=== PATIENT | female | born 1990 | race Caucasian/White ===

== ENCOUNTER 2022-07-04 07:16 | Inpatient (IN) | payer BC, OTHER ==
[2022-07-04] VITALS (34 sets, daily range): BP systolic 110–184; BP diastolic 59–100; PULSE 74–111; TEMP 97.6–99.2
[~2022-07-04] VITALS: Ht 170.2 cm; Wt 87.7 kg
[2022-07-04] MEDS ORDERED: ZOFRAN8 MG PO (08:59)
[2022-07-04 09:44] LABS: BASO % 0.4 % (0.0-2.0); EOS # 0.1 K/mm3 (0.0-0.7); EOS % 0.6 % (0.0-4.0); GRAN # 5.9 K/mm3 (1.4-6.5); GRAN % 73.8 % (42.2-75.2); HEMOGLOBIN 12.1 g/dl (12.5-16.0); LYMPH # 1.4 K/mm3 (1.2-3.4); LYMPH % 17.3 % (20.0-51.0); MEAN CELL VOLUME 84 fl (80.0-100.0); MEAN CORPUSCULAR HEMOGLOBIN 29 pg (27-31); MEAN CORPUSCULAR HGB CONC 34 g/dl (33.0-37.0); MEAN PLATELET VOLUME 11.6 fl (7.4-10.4); MONO # 0.6 K/mm3 (0.1-0.6); MONO % 7.3 % (1.7-9.3); PLATELET COUNT 170 K/mm3 (130-400); RED BLOOD COUNT 4.23 M/mm3 (4.10-5.30); REDCELL DISTRIBUTION WIDTH-CV 13.2 % (11.5-14.5)
[2022-07-04 09:45] LABS: HEMATOCRIT 35.7 % (37.0-47.0)
--- NOTE | 2022-07-04 20:15 | NUR ---
2015 IV TO INT. EPID CATH DCD. UP TO BR WITH ASSIST. AMB WELL. VOIDED 200CC. PERICARE DONE. AMB TO 208 AND JORGE WELL.
[2022-07-05 03:00] VITALS: BP 120/78; PULSE 86; TEMP 98.4
[2022-07-05 07:28] VITALS: BP 123/72; PULSE 88; TEMP 97.2
[2022-07-05 16:32] VITALS: BP 121/73; PULSE 84; TEMP 97.6
--- NOTE | 2022-07-05 20:20 | NUR ---
Infant being transfered to [facility]. Pt requesting to be discharge so she can go with to [place]. Dr. Bonilla called and discharge orders received. See psychiatrican notification.
[2022-07-05 21:00] VITALS: BP 136/80; PULSE 94; TEMP 98
--- NOTE | 2022-07-06 02:40 | NUR ---
Discharge instructions given to pt. Pt verbalized her understanding. Pt ambulatory off unit and home with spouse to go to [facility] due to infant being transfered.
== END 2022-07-06 02:40 | disposition home or self-care (01) | DRG 807 ==
LOC: OB 07:16 → LDR 08:50 → OB 08:50
PROVIDERS: ADMIT Obstetrics & Gynecology
PROC: 10E0XZZ Delivery of Products of Conception, External Approach (ICD-10-PCS; principal; 2022-07-04)
PROC: 0KQM0ZZ Repair Perineum Muscle, Open Approach (ICD-10-PCS; 2022-07-04)
PROC: 10907ZC Drainage of Amniotic Fluid, Therapeutic from Products of Conception, Via Natural or Artificial Opening (ICD-10-PCS; 2022-07-04)
PROC: 3E033VJ Introduction of Other Hormone into Peripheral Vein, Percutaneous Approach (ICD-10-PCS; 2022-07-04)
DX: O48.0 Post-term pregnancy (principal); Z37.0 Single live birth; Z3A.41 41 weeks gestation of pregnancy; O70.1 Second degree perineal laceration during delivery
CPT/HCPCS: J2590; J7120